=== PATIENT | female | born 1960 | race Caucasian/White ===

== ENCOUNTER 2016-11-03 05:14 | Inpatient (IN) ==
[2016-10-25 10:09] LABS: Apearance,Urine CLEAR (Clear); Bilirubin,Urine Negative (Negative); Blood, Urine Negative (Negative); Glucose,Urine (UA) Negative (Negative); Ketones,Urine Negative (Negative); Nitrite,Urine Negative (Negative); Protein,Urine Negative; RBC,Urine <1 /HPF (0-4); Squamous Epithelial Cell,Urine Occasional /HPF (0-10); Urine Color Straw (Yellow); Urine Specific Gravity 1.009 (1.001-1.035); Urine Urobilinogen < 2.0 EU/DL (0.2-1.0); WBC,Urine 1 /HPF (0-6)
[2016-10-25 10:16] LABS: PT Patient Result 10.3 SECS; Partial Thromboplastin Time 25.8 SECS (0-40)
[2016-10-25 10:24] LABS: Basophils % 0.6 % (0.0-0.8); Eosinophils # 0.1 10*3/uL (0.0-0.87); Eosinophils % 2.3 % (0.00-10.9); Hematocrit 34.3 VOL% (35.7-47.0); Immature Granulocytes % 0.4 %; Immature Granulocytes Absolute 0.02 #; Lymphocytes # 1.3 10*3/uL (1.4-4.0); Lymphocytes % 26.1 % (21.3-54.2); Mean Corpuscular HGB Conc 32.1 GM/DL (32-36); Mean Corpuscular Hemoglobin 28 PG (27-34); Mean Corpuscular Volume 87.7 FL (87-102); Mean Platelet Volume 10.6 FL (9.6-12.0); Monocytes # 0.4 10*3/uL (0.11-0.8); Monocytes % 8.6 % (1.7-12.7); Neutrophils # 3.2 10*3/uL (1.4-7.4); Platelet Count 239 T/CUMM (130-400); Red Blood Count 3.91 MC/CUMM (3.8-5.5); Red Cell Distribution Width 12.6 % (9.3-17.3); White Blood Count 5.1 T/CUMM (4-12)
[2016-10-25 10:35] LABS: Bilirubin,Total 0.5 MG/DL (0.2-1.0); Calcium 9.1 MG/DL (8.5-10.1); Osmolality,Calculated 286.8 MOS/KG (273-304); Potassium 4.4 MMOL/L (3.5-5.1); Total Protein 6.6 G/DL (6.4-8.3)
--- NOTE | 2016-10-25 11:58 | XRay Report ---
XR chest 2V Indication: Preop pulmonary evaluation. Chest 2 views: The heart size and mediastinal contour are normal. The lungs and pleural spaces are clear. Bones are unremarkable. Impression: Negative chest. PROCEDURE INTERPRETED AT [facility] [place] DEPARTMENT OF RADIOLOGY Final Report Signed by: Faraz Phillips M.D.
--- NOTE | 2016-10-25 13:18 | EKG Report ---
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
[~2016-11-03 05:14] MED LIST: FAMOTIDINE 20 MG TABLET PO ONE; LORazepam 1 MG TABLET PO ONE
[2016-11-03] MEDS ORDERED: VANCOMYCIN INJ 1,000 MG in SODIUM CHLORIDE 0.9% 250 ML IV ONE (06:00)
--- NOTE | 2016-11-03 06:48 | History and Physical Update ---
History and Physical Update - History and Physical H&P was reviewed, the patient examined and there: are no changes in the patients condition since last H&P was completed. (except left hip is more symptomatic)
[2016-11-03] MEDS ORDERED: ceFAZolin 1,000 MG VIAL ONE (07:23)
[2016-11-03] MEDS ORDERED: VANCOMYCIN 1,000 MG VIAL ONE (07:23)
[2016-11-03] MEDS ORDERED: SODIUM CHLORIDE 0.9% 100 ML IV ONE (07:24)
[2016-11-03] MEDS ORDERED: LORazepam 1 MG TABLET ONE (07:24)
[2016-11-03] MEDS ORDERED: FAMOTIDINE 20 MG TABLET ONE (07:24)
[2016-11-03] MEDS ORDERED: LACTATED RINGERS 1,000 ML IV SCH (08:00)
[2016-11-03] MEDS ORDERED: MORPHINE 10 MG/10 ML VIAL ONE (09:12)
[2016-11-03] MEDS ORDERED: TRANEXAMIC ACID 1,000 MG/10 ML VIAL IV ONE (09:14)
[2016-11-03] MEDS ORDERED: ONDANSETRON 4 MG/2 ML VIAL ONE (09:27)
[2016-11-03] MEDS ORDERED: PROPOFOL 200 MG/20 ML VIAL IV ONE (09:27)
[2016-11-03] MEDS ORDERED: BACITRACIN OINT 0.9 GM PACK TOP ONE (10:38)
[2016-11-03 11:02] LABS: Apearance,Urine CLEAR (Clear); Bilirubin,Urine Negative (Negative); Blood, Urine Negative (Negative); Glucose,Urine (UA) Negative (Negative); Ketones,Urine Negative (Negative); Nitrite,Urine Negative (Negative); Protein,Urine Negative; Urine Color Colorless (Yellow); Urine Specific Gravity 1.003 (1.001-1.035); Urine Urobilinogen < 2.0 EU/DL (0.2-1.0)
[2016-11-03] MEDS ORDERED: diphenhydrAMINE CAP 25 MG CAPSULE PO PRN (11:06)
[2016-11-03] MEDS ORDERED: ONDANSETRON 4 MG/2 ML VIAL IV PRN (11:06)
[2016-11-03] MEDS ORDERED: MORPHINE 2 MG/1 ML SYRINGE IV PRN ×2 (11:06)
[2016-11-03] MEDS ORDERED: oxyCODONE IR 5 MG TABLET PO PRN ×2 (11:06)
--- NOTE | 2016-11-03 11:22 | Operative Note ---
Date of procedure: 11/03/16 Procedure: DIAGNOSIS: Bilateral hip primary osteoarthritis PROCEDURE: Right total hip arthroplasty (CPT#26130) SURGEON: Cash ANESTHESIA: Spinal PROCEDURE and FINDINGS: After adequate anesthesia was induced, the patient was placed in lateral decubitus position. Left lower extremities prepped and draped in usual sterile fashion. Posteriolateral approach to the hip was made. Skin, subcutaneous tissue and deep fascia was incised longitudinally. Gluteus natasha muscle belly was split in line with its fibers. Piriformis, external rotators and capsule were taken down as a single layer as an inverted L shaped capsulotomy. Hip was dislocated. Templated femoral neck cut was made. Acetabulum was prepared by sequentially reaming to 53 mm. A 54 mm Continuum acetabular shell was press-fit with excellent stability. 1 6.5 millimeter screw was placed with an excellent bite. 32 mm elevated Longevity liner was placed with a dome hole plug. Femur was prepared sequentially with the box osteotome, canal finder and sequential broaches to 15. Components were trialed. A size 15 Versys Legacy stem was cemented in place with Palacos cement with modern cementing techniques. A distal centralizer and cement restrictor were utilized.. A 32+0 mm head was placed. The component was stable posteriorly and anteriorly. Capsule and external rotators were repaired to the greater trochanter with #5 Tycron. Deep fascia was closed with 0 Vicryl xarcym-mm-giyvv suture. Subcutaneous tissue was closed deep with a 2-0 Vicryl runner and superficially with 3-0 interrupted buried sutures. Skin was closed with aruna. Bacitracin and a sterile occlusive dressing was applied. Surgeon / Physician: Giovanni Castrejon Jr. Results - Labs CBC & BMP: 10/25/16 09:49 10/25/16 09:49 Discharge Plan - Discharge Medications No Action HYDROcodone/ACETAMIN 5-325 [[place] 5-325] 1 tablet PO BID PRN PRN Reason: Pain Diclofenac Sodium Tab [Voltaren] 75 mg PO DAILY Cholecalciferol [Vitamin D3] 500 unit PO DAILY Cyanocobalamin Tab [Vitamin B12 Tab] 500 mcg PO DAILY - Follow Up or Referral - Forms/Instructions
[2016-11-03] MEDS: LACTATED RINGERS 1,000 ML IV SCH ×2 (12:10→22:18)
--- NOTE | 2016-11-03 12:33 | XRay Report ---
XR hip 1V RT Indication: Joint replacement Comparison: None Technique: Single frontal view of the right hip Findings: Status post total right hip arthroplasty. No evidence of immediate hardware failure. Subcutaneous emphysema noted which is likely postoperative. Superficial skin aruna noted. IMPRESSION: As above. PROCEDURE INTERPRETED AT [facility] [place] DEPARTMENT OF RADIOLOGY Final Report Signed by: Dr Aydin Hines
[2016-11-03] MEDS ORDERED: MIDAZOLAM 2 MG/2 ML VIAL ONE (13:13)
[2016-11-03] MEDS ORDERED: KETAMINE 500 MG/10 ML VIAL ONE (13:13)
[2016-11-03] MEDS ORDERED: ACETAMINOPHEN 1,000 MG/100 ML VIAL IV ONE (13:14)
[2016-11-03] MEDS: KETOROLAC 30 MG/1 ML VIAL IV SCH ×2 (14:18→20:32)
[2016-11-03] MEDS ORDERED: LACTATED RINGERS 1,000 ML IV ONE (16:28)
--- NOTE | 2016-11-03 17:23 | Orthopedic Progress Note ---
Orthopedics - Subjective Interval history: Comfortable. She was able to stand today with physical therapy. She is mildly hypotensive. Dressing clean, dry and intact. Right lower extremities neurovascularly intact. Plan: Bolus with 1 L LR. Otherwise, continue with orders. Exam - Constitutional Vitals: Period Temp Pulse Resp BP Sys/Gomez Pulse Ox Last 24 Hr 97.3 F-99.0 F 47-71 16-20 94-148/42-74 98-100 Results - Labs CBC & BMP: 10/25/16 09:49 10/25/16 09:49
[2016-11-03] MEDS: ACETAMINOPHEN 500 MG TABLET PO SCH ×2 (18:30→22:17)
[2016-11-03] MEDS: DOCUSATE SODIUM 100 MG CAPSULE PO SCH (20:32)
[2016-11-04] MEDS: KETOROLAC 30 MG/1 ML VIAL IV SCH ×2 (01:34→09:04)
[2016-11-04] MEDS: ACETAMINOPHEN 500 MG TABLET PO SCH ×2 (03:25→09:05)
[2016-11-04] MEDS: FONDAPARINUX 2.5 MG/0.5 ML SYRINGE SUBCUT SCH (05:32)
[2016-11-04 06:13] LABS: Basophils % 0.2 % (0.0-0.8); Eosinophils # 0.1 10*3/uL (0.0-0.87); Eosinophils % 1.8 % (0.00-10.9); Hematocrit 25.4 VOL% (35.7-47.0); Hemoglobin 7.9 GM/DL (12.0-16.0); Immature Granulocytes % 0.4 %; Immature Granulocytes Absolute 0.02 #; Lymphocytes # 0.8 10*3/uL (1.4-4.0); Lymphocytes % 15.3 % (21.3-54.2); Mean Corpuscular HGB Conc 31.1 GM/DL (32-36); Mean Corpuscular Hemoglobin 28 PG (27-34); Mean Corpuscular Volume 89.1 FL (87-102); Mean Platelet Volume 10.8 FL (9.6-12.0); Monocytes # 0.6 10*3/uL (0.11-0.8); Monocytes % 12.5 % (1.7-12.7); Neutrophils # 3.6 10*3/uL (1.4-7.4); Neutrophils % 69.8 % (38.7-73.9); Platelet Count 164 T/CUMM (130-400); Red Blood Count 2.85 MC/CUMM (3.8-5.5); Red Cell Distribution Width 12.4 % (9.3-17.3); White Blood Count 5.1 T/CUMM (4-12)
[2016-11-04] MEDS ORDERED: SODIUM CHLORIDE 0.9% 250 ML IV PRN (06:17)
--- NOTE | 2016-11-04 06:28 | Orthopedic Progress Note ---
Orthopedics - Subjective Interval history: comfortable bolus helped temporarily, hypotensive this am nv ok dressing dry transfuse for acute blood loss anemia. mobilize bed to chair Exam - Constitutional Vitals: Period Temp Pulse Resp BP Sys/Gomez Pulse Ox Last 24 Hr 97.1 F-99.0 F 47-71 16-20 86-148/42-74 98-100 Results - Labs CBC & BMP: 11/04/16 05:38 10/25/16 09:49
[2016-11-04 06:47] LABS: Potassium 4.3 MMOL/L (3.5-5.1)
--- NOTE | 2016-11-04 08:56 | Anesthesia ---
Anesthesia Post OP - Post Ansesthetic Evaluation Patient seen in post op: Yes Resp: within normal limits CV: within normal limits Mental: within normal limits Temp: within normal limits Qiep-Kp-Asavfhntt: within normal limits Nausea and Vomiting: within normal limits Pain: within normal limits
[2016-11-04] MEDS: CYANOCOBALAMIN 500 MCG TABLET PO SCH (09:04)
[2016-11-04] MEDS: CHOLECALCIFEROL 1,000 UNIT TABLET PO SCH (09:04)
[2016-11-04] MEDS: DOCUSATE SODIUM 100 MG CAPSULE PO SCH ×2 (09:05→20:20)
--- NOTE | 2016-11-04 11:23 | Pathology Report from [facility] ---
ACCESSION # : [id number] PATIENT NAME : Michelle Douglas ORDERING DR : ERIN GREWAL MD CLINICAL HX: Right hip osteoarthritis POST-OP DX: Same SPECIMEN INFO: Right hip bone and tissue GROSS DESCRIPTION: The specimen is received in formalin labeled with the patient 's name and consists of a 4.3 x 5.2 x 5.2 cm femoral head. The articular surface is pink-metzger, roughened and degenerative with marked peripheral osteophyte formation noted. Cut surface is smooth, red-metzger with marked softening noted. Also in the container are multiple fragments of bone shavings collectively measuring 10.2 x 5.4 cm. Linux Support Engineer tissue submitted in one cassette following decalcification. DIAGNOSIS FOR MICHELLE DOUGLAS: RIGHT HIP BONE AND TISSUE, REPLACEMENT: Osteoarthritis. SERVICE DATE: 11/03/2016 REPORT DATE: 11/04/2016 PATHOLOGIST: Sammy Carrion M.D. MTDDella
[2016-11-04 17:48] LABS: Hematocrit 33.7 VOL% (35.7-47.0)
[2016-11-05 05:22] LABS: Basophils % 0.3 % (0.0-0.8); Eosinophils # 0.1 10*3/uL (0.0-0.87); Eosinophils % 0.7 % (0.00-10.9); Hemoglobin 10.4 GM/DL (12.0-16.0); Immature Granulocytes % 0.4 %; Immature Granulocytes Absolute 0.03 #; Lymphocytes # 0.9 10*3/uL (1.4-4.0); Lymphocytes % 12.4 % (21.3-54.2); Mean Corpuscular HGB Conc 32.5 GM/DL (32-36); Mean Corpuscular Hemoglobin 27 PG (27-34); Mean Corpuscular Volume 84.4 FL (87-102); Monocytes # 0.9 10*3/uL (0.11-0.8); Neutrophils # 5.6 10*3/uL (1.4-7.4); Neutrophils % 74.2 % (38.7-73.9); Platelet Count 173 T/CUMM (130-400); Red Blood Count 3.79 MC/CUMM (3.8-5.5); Red Cell Distribution Width 13.3 % (9.3-17.3); White Blood Count 7.6 T/CUMM (4-12)
[2016-11-05] MEDS: FONDAPARINUX 2.5 MG/0.5 ML SYRINGE SUBCUT SCH (05:53)
[2016-11-05] MEDS: CHOLECALCIFEROL 1,000 UNIT TABLET PO SCH (09:20)
[2016-11-05] MEDS: DOCUSATE SODIUM 100 MG CAPSULE PO SCH ×2 (09:20→20:20)
[2016-11-05] MEDS: CYANOCOBALAMIN 500 MCG TABLET PO SCH (09:20)
[2016-11-05] MEDS: MAGNESIUM HYDROXIDE SUSP 30 ML UDCUP PO PRN ×2 (09:24→16:19)
--- NOTE | 2016-11-05 09:31 | Orthopedic Progress Note ---
Orthopedics - Subjective Interval history: comfortable nv ok. hgb improved. mobilize with therapy. home Tuesday or Tuesday. Exam - Constitutional Vitals: Period Temp Pulse Resp BP Sys/Gomez Pulse Ox Last 24 Hr 97.5 F-100.2 F 70-83 16-18 115-155/63-80 93-100 Results - Labs CBC & BMP: 11/05/16 03:55 11/04/16 05:38 Specialty Discharge - Follow Up or Referrals Follow up with: Giovanni Castrejon Jr., MD [Physician] - 12/03/16 12:15 pm
--- NOTE | 2016-11-05 09:33 | Discharge Summary ---
<Giovanni Castrejon Jr. - Last Filed: 11/05/16 09:31> Hospital Course - Hospital Course Hospital Course: Mrs. Reis was admitted after undergoing an uncomplicated right total hip arthroplasty. She received perioperative DVT and antimicrobial prophylaxis. She received physical therapy. She was discharged home in stable condition with home health therapy. She is routine total hip discharge instructions. Specialty Discharge - Follow Up or Referrals Follow up with: Giovanni Castrejon Jr., MD [Physician] - 12/03/16 12:15 pm Discharge Plan - Discharge Data Disposition: Home Health Service Condition at Discharge: Stable Discharge Diet: advance to your usual diet Hygiene: may shower Weight Bearing at Discharge: weight bear as tolerated Driving: not until seen by doctor - Discharge Medications No Action HYDROcodone/ACETAMIN 5-325 [[place] 5-325] 1 tablet PO BID PRN PRN Reason: Pain Diclofenac Sodium Tab [Voltaren] 75 mg PO DAILY Cholecalciferol [Vitamin D3] 500 unit PO DAILY Cyanocobalamin Tab [Vitamin B12 Tab] 500 mcg PO DAILY - Follow Up or Referral Follow Up: Giovanni Castrejon Jr., MD [Physician] - 12/03/16 12:15 pm - Forms/Instructions Instructions: Total Hip Replacement (DC) Additional Discharge Instructions: Posterior hip precautions for 3 months. Daily dry dressing changes. Arrange for walker and bedside commode for home use. Wear DERRICK hose for 1 month. Follow-up appointment in 4 weeks. Discontinue aruna and Steri-Strip wound on November 15, 2016. Prescription for [place] 7.5 with 30 tablets was written. Take aspirin 325 mg daily by mouth for 21 days. Exam - Constitutional Vitals: Period Temp Pulse Resp BP Sys/Gomez Pulse Ox Last 24 Hr 97.2 F-98.5 F 72-90 17-20 119-148/69-80 95-96 Discharge Results Labs on day of discharge: Labs from last 24 hours 11/06/16 02:50 WBC 8.1 RBC 4.08 Hgb 11.1 L Hct 35.1 L MCV 86.0 L MCH 27 MCHC 31.6 L RDW 13.4 Plt Count 212 D MPV 10.6 Neut % (Auto) 73.4 Lymph % (Auto) 13.2 L [place] % (Auto) 10.9 Eos % (Auto) 1.6 Baso % (Auto) 0.5 Neut # (Auto) 6.0 Lymph # (Auto) 1.1 L [place] # (Auto) 0.9 H Eos # (Auto) 0.1 Baso # (Auto) 0.0 Immature Gran % 0.4 Nucleated RBC % 0.0 Immature Gran # 0.03 Nucleated RBCs # 0.00 DS: Provider Date of admission: 11/03/16 05:14 Primary care physician: ANTONY Cardona Attending physician on admission: Giovanni Castrejon Jr., Consults: 11/03/16 11:06 Consult to Case Mgmt/Social Srvs [CONS] Routine Reason for Case Mgmt/Social Srvs: Rehab Home Health Equipment Consult Comment: Bedside Commode,Del room 320, D/C today home, Pt 5ft 2in 154lbs Consult to Occupational Therapy [CONS] Routine Reason for Occupational Therapy: Evaluate and Treat Consult Comment: ADL's Consult to Physical Therapy [CONS] Routine Reason for Physical Therapy: Evaluate and Treat Gait Training Start Therapy: Today Consult Comment: wbat, posterior hip precautions 11/03/16 13:46 Consult to Pharmacy [CONS] Routine Reason for Pharmacy Consult: Adjust Meds Renal Funct 11/03/16 14:25 Consult to Pastoral Services [CONS] Routine Comment: Pastoral Screen: Request Eye Clinic Manager Visit Pastoral Screen Source of Request: Patient Discharging clinician: Giovanni Castrejon Jr., Expected date of discharge: 11/05/16 <Anmol Fernandes - Last Filed: 11/06/16 08:37> Diagnosis - Discharge Diagnosis (1) H/O total hip arthroplasty Status: Acute (2) Urgency of urination Status: Acute Exam - Constitutional General appearance: normal weight - Head Head exam: Present: normal inspection - Eye Eye exam: Present: EOMI Pupils: Present: ISMAEL - ENT ENT exam: Present: normal exam - Cardiovascular Cardiovascular exam: Present: regular rate and rhythm - GI/Abdominal GI/Abdominal exam: Absent: distended, firm - Extremities Exam Extremities exam: Present: normal inspection - Expanded Right Lower Hip exam: Present: normal inspection (Dressing clean, dry, intact.) Foot/Toe exam: Present: normal inspection, full ROM Neuro vascular tendon exam: Absent: motor deficit, pulse deficit, sensory deficit - Neurological Exam Neurological exam: Present: alert, oriented X3 - Psychiatric Psychiatric exam: Present: normal affect, normal mood - Skin Skin exam: Present: normal color DS: Provider Expected date of discharge: 11/06/16
[2016-11-06 03:16] LABS: Basophils % 0.5 % (0.0-0.8); Eosinophils # 0.1 10*3/uL (0.0-0.87); Eosinophils % 1.6 % (0.00-10.9); Hematocrit 35.1 VOL% (35.7-47.0); Hemoglobin 11.1 GM/DL (12.0-16.0); Immature Granulocytes % 0.4 %; Immature Granulocytes Absolute 0.03 #; Lymphocytes # 1.1 10*3/uL (1.4-4.0); Lymphocytes % 13.2 % (21.3-54.2); Mean Corpuscular HGB Conc 31.6 GM/DL (32-36); Mean Corpuscular Hemoglobin 27 PG (27-34); Mean Platelet Volume 10.6 FL (9.6-12.0); Monocytes # 0.9 10*3/uL (0.11-0.8); Monocytes % 10.9 % (1.7-12.7); Neutrophils % 73.4 % (38.7-73.9); Platelet Count 212 T/CUMM (130-400); Red Blood Count 4.08 MC/CUMM (3.8-5.5); Red Cell Distribution Width 13.4 % (9.3-17.3); White Blood Count 8.1 T/CUMM (4-12)
[2016-11-06] MEDS: FONDAPARINUX 2.5 MG/0.5 ML SYRINGE SUBCUT SCH (05:57)
[2016-11-06 07:55] VITALS: BP 121/70
--- NOTE | 2016-11-06 08:32 | Orthopedic Progress Note ---
Assessment and Plan (1) H/O total hip arthroplasty Status: Acute Assessment and plan: Continued care: PT, DVT prophylaxis, pain control Posterior hip precautions were discussed Continue weightbearing as tolerated right lower extremity Discharge planning for today to home with home health Follow with Dr. Castrejon in office Current Visit: Yes (2) Urgency of urination Status: Acute Assessment and plan: Her urinalysis from 11/03/16 was unremarkable for any evidence of signs of infection Discussed that her urinary urgency may be due to irritation from the Rodriges catheter. Recommend continued observation at this time and protective/ absorbent pads for her undergarments. Discussed that if this persists then she may need evaluation by a urologist or to discuss this with her PCP. Current Visit: Yes Orthopedics - Subjective Interval history: Patient seen and examined. Sitting up in chair. in room. States that she wants to go home today and is feeling well without complaints. Stated that she is having urinary urgency since the Rodriges catheter was removed. Denies any history of incontinence or urgency in the past. Exam - Constitutional Vitals: Period Temp Pulse Resp BP Sys/Gomez Pulse Ox Last 24 Hr 97.2 F-98.5 F 72-90 17-20 119-148/69-80 95-96 - Extremities Exam Extremities exam: Present: normal inspection (Right lower extremity: Dressing clean, dry, intact. Compartments soft. Minimal tenderness to palpation. Full active range of motion toes and ankle. Cap refill brisk. Sensation intact. Calf soft.) Results - Labs CBC & BMP: 11/06/16 02:50 11/04/16 05:38 Lab Results: I have reviewed the past 24 hour labs Specialty Discharge - Follow Up or Referrals Follow up with: Giovanni Castrejon Jr., MD [Physician] - 12/03/16 12:15 pm
[2016-11-06] MEDS: DOCUSATE SODIUM 100 MG CAPSULE PO SCH (09:04)
[2016-11-06] MEDS: CHOLECALCIFEROL 1,000 UNIT TABLET PO SCH (09:04)
[2016-11-06] MEDS: CYANOCOBALAMIN 500 MCG TABLET PO SCH (09:06)
== END 2016-11-06 09:55 | disposition home health service (06) | DRG 470 ==
LOC: N.SDSINP 05:14 → N.3E 11:55
PROVIDERS: ADMIT Orthopaedic Surgery; ATTEND Orthopaedic Surgery

== ENCOUNTER 2017-02-15 05:17 | Inpatient (IN) ==
[2017-02-07 10:19] LABS: Basophils % 0.8 % (0.0-0.8); Eosinophils # 0.1 10*3/uL (0.0-0.87); Eosinophils % 2.6 % (0.00-10.9); Hemoglobin 11.6 GM/DL (12.0-16.0); Immature Granulocytes % 0.2 %; Immature Granulocytes Absolute 0.01 #; Lymphocytes # 1.2 10*3/uL (1.4-4.0); Lymphocytes % 24.8 % (21.3-54.2); Mean Corpuscular HGB Conc 33.1 GM/DL (32-36); Mean Corpuscular Hemoglobin 28 PG (27-34); Mean Platelet Volume 10.3 FL (9.6-12.0); Monocytes # 0.4 10*3/uL (0.11-0.8); Monocytes % 8.3 % (1.7-12.7); Neutrophils # 3.1 10*3/uL (1.4-7.4); Neutrophils % 63.3 % (38.7-73.9); Platelet Count 208 T/CUMM (130-400); Red Blood Count 4.12 MC/CUMM (3.8-5.5); White Blood Count 4.9 T/CUMM (4-12)
[2017-02-07 10:28] LABS: Partial Thromboplastin Time 26.3 SECS (0-40)
--- NOTE | 2017-02-07 10:42 | XRay Report ---
Exam: XR chest 2V Indication: Preop Comparison study: Prior chest radiograph 10/25/2016 Findings: The heart, mediastinum and bony structures are stable from prior. There is no focal consolidation, pneumothorax or pleural effusion identified. Impression: No acute cardiopulmonary process. No significant change from prior. PROCEDURE INTERPRETED AT [facility] DEPARTMENT OF RADIOLOGY Final Report Signed by: Raul Piña
[2017-02-07 10:49] LABS: Apearance,Urine CLEAR (Clear); Bacteria,Urine Occasional /HPF (Few); Bilirubin,Urine Negative (Negative); Blood, Urine Negative (Negative); Glucose,Urine (UA) Negative (Negative); Ketones,Urine Negative (Negative); Nitrite,Urine Negative (Negative); Protein,Urine Negative; Squamous Epithelial Cell,Urine Occasional /HPF (0-10); Urine Color Straw (Yellow); Urine Specific Gravity 1.004 (1.001-1.035); Urine Urobilinogen < 2.0 EU/DL (0.2-1.0)
[2017-02-07 11:00] LABS: Bilirubin,Total 0.7 MG/DL (0.2-1.0); Calcium 9.2 MG/DL (8.5-10.1); Osmolality,Calculated 281.3 MOS/KG (273-304); Potassium 4.5 MMOL/L (3.5-5.1); Total Protein 6.8 G/DL (6.4-8.3)
--- NOTE | 2017-02-07 13:51 | EKG Report ---
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
[2017-02-15] MEDS ORDERED: VANCOMYCIN INJ 1,000 MG in SODIUM CHLORIDE 0.9% 250 ML IV ONE (06:00)
[2017-02-15] MEDS ORDERED: TRANEXAMIC ACID 1,000 MG/10 ML VIAL IV ONE (06:16)
[2017-02-15] MEDS ORDERED: SODIUM CHLORIDE 0.9% 100 ML IV ONE ×2 (06:20→08:53)
[2017-02-15] MEDS ORDERED: VANCOMYCIN 1,000 MG VIAL ONE (06:20)
[2017-02-15] MEDS ORDERED: ceFAZolin 1,000 MG VIAL ONE (06:20)
[2017-02-15] MEDS ORDERED: BACITRACIN OINT 0.9 GM PACK TOP ONE (06:28)
--- NOTE | 2017-02-15 06:57 | History and Physical Update ---
History and Physical Update - History and Physical H&P was reviewed, the patient examined and there: are no changes in the patients condition since last H&P was completed. - Physical Exam Mental Status: alert and oriented Heart: regular rate and rhythm Lung: clear to auscultation
[2017-02-15] MEDS ORDERED: LACTATED RINGERS 1,000 ML IV SCH (07:00)
[2017-02-15] MEDS ORDERED: diphenhydrAMINE CAP 25 MG CAPSULE PO PRN (08:36)
[2017-02-15] MEDS ORDERED: MORPHINE 2 MG/1 ML SYRINGE IV PRN ×2 (08:36)
[2017-02-15] MEDS ORDERED: MAGNESIUM HYDROXIDE SUSP 30 ML UDCUP PO PRN (08:36)
[2017-02-15] MEDS ORDERED: ZALEPLON 5 MG CAPSULE PO PRN (08:36)
[2017-02-15] MEDS ORDERED: ONDANSETRON 4 MG/2 ML VIAL IV PRN (08:36)
[2017-02-15] MEDS ORDERED: oxyCODONE IR 5 MG TABLET PO PRN ×2 (08:36)
--- NOTE | 2017-02-15 08:40 | Operative Note ---
Date of procedure: 02/15/17 Procedure: DIAGNOSIS: Left hip primary osteoarthritis PROCEDURE: Left total hip arthroplasty (CPT#89161) SURGEON: Cash ASST: Tej Zapata ANESTHESIA: Spinal PROCEDURE and FINDINGS: After adequate anesthesia was induced, the patient was placed in lateral decubitus position. Left lower extremities prepped and draped in usual sterile fashion. Posteriolateral approach to the hip was made. Skin, subcutaneous tissue and deep fascia was incised longitudinally. Gluteus natasha muscle belly was split in line with its fibers. Piriformis, external rotators and capsule were taken down as a single layer as an inverted L shaped capsulotomy. Hip was dislocated. Templated femoral neck cut was made. Acetabulum was prepared by sequentially reaming to 53 mm. A 54 mm Continuum acetabular shell was press-fit with excellent stability. 1 6.5 millimeter screw was placed with an excellent bite. 32 mm elevated rim longevity liner was placed with a dome hole plug. Femur was prepared sequentially with the box osteotome, canal finder and sequential broaches to 15. Components were trialed. A size 15 Versys Advocate stem was cemented in place using Palacos cement and modern cementing techniques. A distal centralizer and cement restrictor were used. A 32+0 mm head was placed. The component was stable posteriorly and anteriorly. Capsule was repaired with #5 Tycron suture to the greater trochanter. Deep fascia was closed with 0 Vicryl flmbid-zs-innpj suture. Subcutaneous tissue was closed deep with a 2-0 Vicryl runner and superficially with 3-0 interrupted buried sutures. Skin was closed with aruna. Bacitracin and a sterile occlusive dressing was applied. Surgeon / Physician: Giovanni Castrejon Jr. Results - Labs CBC & BMP: 02/07/17 10:12 02/07/17 10:12 Discharge Plan - Discharge Medications No Action HYDROcodone/ACETAMIN 5-325 [[place] 5-325] 1 tablet PO BID PRN PRN Reason: Pain Diclofenac Sodium Tab [Voltaren] 75 mg PO DAILY Cholecalciferol [Vitamin D3] 500 unit PO DAILY Cyanocobalamin Tab [Vitamin B12 Tab] 500 mcg PO DAILY - Follow Up or Referral - Forms/Instructions
[2017-02-15] MEDS ORDERED: MIDAZOLAM 2 MG/2 ML VIAL ONE (08:53)
[2017-02-15] MEDS ORDERED: fentaNYL 100 MCG/2 ML VIAL ONE (08:53)
[2017-02-15] MEDS ORDERED: ACETAMINOPHEN 1,000 MG/100 ML VIAL IV ONE (08:53)
[2017-02-15 08:57] LABS: Apearance,Urine CLEAR (Clear); Bilirubin,Urine Negative (Negative); Blood, Urine Negative (Negative); Glucose,Urine (UA) Negative (Negative); Hyaline Casts,Urine 1 /LPF (0-3); Ketones,Urine Negative (Negative); Mucus,Urine Occasional /LPF (Occasional); Nitrite,Urine Negative (Negative); Protein,Urine Negative; RBC,Urine 1 /HPF (0-4); Squamous Epithelial Cell,Urine Occasional /HPF (0-10); Urine Color Yellow (Yellow); Urine Specific Gravity 1.014 (1.001-1.035); Urine Urobilinogen < 2.0 EU/DL (0.2-1.0); WBC,Urine <1 /HPF (0-6)
[2017-02-15] MEDS ORDERED: CHOLECALCIFEROL 400 UNIT TABLET PO SCH (09:00)
--- NOTE | 2017-02-15 09:12 | XRay Report ---
History is status post left hip replacement Patient is status post total left hip replacement with overlying soft tissue aruna. There is resulting gross anatomic alignment on this single view. Left pelvic clips visualized Impression: Status post left hip replacement PROCEDURE INTERPRETED AT [facility] DEPARTMENT OF RADIOLOGY Final Report Signed by: Dr. Delmy Mcmanus
[2017-02-15] MEDS: KETOROLAC 30 MG/1 ML VIAL IV SCH ×3 (11:03→22:11)
[2017-02-15] MEDS: DOCUSATE SODIUM 100 MG CAPSULE PO SCH ×2 (11:03→20:13)
[2017-02-15] MEDS: CHOLECALCIFEROL 400 UNIT TABLET PO SCH (11:03)
[2017-02-15] MEDS: LACTATED RINGERS 1,000 ML IV SCH ×2 (11:03→20:13)
[2017-02-15] MEDS: CYANOCOBALAMIN 500 MCG TABLET PO SCH (11:03)
[2017-02-15] MEDS: ceFAZolin 2,000 MG in PREMIX 1 EACH IV SCH ×2 (13:33→20:14)
[2017-02-15] MEDS: ACETAMINOPHEN 500 MG TABLET PO SCH ×2 (13:34→18:10)
--- NOTE | 2017-02-15 15:44 | Orthopedic Progress Note ---
Orthopedics - Subjective Interval history: Comfortable. Sitting up in a chair. Left lower extremities neurovascularly intact. Plan: Mobilize per protocol. Exam - Constitutional Vitals: Period Temp Pulse Resp BP Sys/Gomez Pulse Ox Last 24 Hr 97.3 F-97.8 F 52-92 16-20 100-140/56-78 98-100 Results - Labs CBC & BMP: 02/07/17 10:12 02/07/17 10:12
[2017-02-16] MEDS: FONDAPARINUX 2.5 MG/0.5 ML SYRINGE SUBCUT SCH (02:07)
[2017-02-16 05:23] LABS: Basophils % 0.4 % (0.0-0.8); Eosinophils # 0.1 10*3/uL (0.0-0.87); Eosinophils % 1.8 % (0.00-10.9); Hematocrit 27.8 VOL% (35.7-47.0); Hemoglobin 9.2 GM/DL (12.0-16.0); Immature Granulocytes % 0.4 %; Immature Granulocytes Absolute 0.02 #; Lymphocytes # 0.8 10*3/uL (1.4-4.0); Lymphocytes % 13.5 % (21.3-54.2); Mean Corpuscular HGB Conc 33.1 GM/DL (32-36); Mean Corpuscular Hemoglobin 28 PG (27-34); Mean Corpuscular Volume 84.2 FL (87-102); Mean Platelet Volume 10.9 FL (9.6-12.0); Monocytes # 0.7 10*3/uL (0.11-0.8); Monocytes % 11.5 % (1.7-12.7); Neutrophils # 4.1 10*3/uL (1.4-7.4); Neutrophils % 72.4 % (38.7-73.9); Platelet Count 144 T/CUMM (130-400); Red Cell Distribution Width 13.3 % (9.3-17.3); White Blood Count 5.6 T/CUMM (4-12)
[2017-02-16] MEDS ORDERED: KETOROLAC 30 MG/1 ML VIAL ONE (05:38)
[2017-02-16 05:48] LABS: Calcium 7.9 MG/DL (8.5-10.1); Osmolality,Calculated 279.4 MOS/KG (273-304)
[2017-02-16] MEDS: ACETAMINOPHEN 500 MG TABLET PO SCH ×2 (05:52)
[2017-02-16] MEDS: KETOROLAC 30 MG/1 ML VIAL IV SCH (05:52)
[2017-02-16 06:06] LABS: Band Neutrophils 8 % (0-10); Eosinophils 2 % (0-10); Lymphocytes 13 % (20-55); Segmented Neutrophils 72 % (50-85); Total Cells Counted 100
[2017-02-16 06:07] LABS: Hypochromasia 1+; Microcytosis 1+; Ovalocytes Few; Platelet Estimate Adequate
[2017-02-16] MEDS: LACTATED RINGERS 1,000 ML IV SCH (07:42)
[2017-02-16] MEDS: DOCUSATE SODIUM 100 MG CAPSULE PO SCH ×2 (09:27→21:05)
[2017-02-16] MEDS: CHOLECALCIFEROL 400 UNIT TABLET PO SCH (09:27)
[2017-02-16] MEDS: CYANOCOBALAMIN 500 MCG TABLET PO SCH (09:27)
--- NOTE | 2017-02-16 12:18 | Pathology Report from [facility] ---
[facility] [place] ACCESSION # : [id number] PATIENT NAME : Michelle Gallardo ORDERING DR : ERIN GREWAL MD CLINICAL HX: LT hip osteoarthritis POST-OP DX: Same SPECIMEN INFO: LT hip bone & tissue GROSS DESCRIPTION: The specimen is received in formalin labeled with the patients name and consists of a focally degenerative femoral head measuring 5.0 x 4.8 x 5.2 cm with an area of subchondral eburnation seen measuring 3.3 x 2.5 cm. Cut surfaces are smooth with some softening appreciated. Received separately in the container are fragments of hemorrhagic bone and soft tissue measuring 15.0 x 3.5 cm in aggregate. Nib Finisher tissue submitted in one cassette following decalcification. DIAGNOSIS FOR MICHELLE GALLARDO: LEFT HIP BONE AND TISSUE: Gross and microscopic findings consistent with osteoarthritis. Normocellular bone marrow. COLLECTED DATE: 02/15/2017 [facility] REPORT DATE: 02/16/2017 ELECTRONICALLY SIGNED BY: Jey Judd III, M.D. 02/16/2017 - 10:05:21 [facility]
--- NOTE | 2017-02-16 16:21 | Orthopedic Progress Note ---
Orthopedics - Subjective Interval history: comfortable this am when seen nv ok. dressing dry. continue orders. Exam - Constitutional Vitals: Period Temp Pulse Resp BP Sys/Gomez Pulse Ox Last 24 Hr 97.0 F-98.4 F 65-72 16-19 95-115/53-60 95-98 Results - Labs CBC & BMP: 02/16/17 05:03 02/16/17 05:03
[2017-02-17] MEDS: FONDAPARINUX 2.5 MG/0.5 ML SYRINGE SUBCUT SCH (03:00)
[2017-02-17 03:19] LABS: Basophils % 0.4 % (0.0-0.8); Eosinophils # 0.1 10*3/uL (0.0-0.87); Eosinophils % 1.3 % (0.00-10.9); Hematocrit 27.2 VOL% (35.7-47.0); Immature Granulocytes % 0.6 %; Immature Granulocytes Absolute 0.04 #; Lymphocytes # 0.8 10*3/uL (1.4-4.0); Lymphocytes % 10.7 % (21.3-54.2); Mean Corpuscular HGB Conc 33.1 GM/DL (32-36); Mean Corpuscular Hemoglobin 28 PG (27-34); Mean Corpuscular Volume 84.2 FL (87-102); Monocytes # 0.7 10*3/uL (0.11-0.8); Monocytes % 9.4 % (1.7-12.7); Neutrophils # 5.5 10*3/uL (1.4-7.4); Neutrophils % 77.6 % (38.7-73.9); Platelet Count 145 T/CUMM (130-400); Red Blood Count 3.23 MC/CUMM (3.8-5.5); Red Cell Distribution Width 13.5 % (9.3-17.3); White Blood Count 7.1 T/CUMM (4-12)
[2017-02-17 07:41] VITALS: BP 123/68
[2017-02-17] MEDS: CHOLECALCIFEROL 400 UNIT TABLET PO SCH (08:32)
[2017-02-17] MEDS: CYANOCOBALAMIN 500 MCG TABLET PO SCH (08:32)
[2017-02-17] MEDS: DOCUSATE SODIUM 100 MG CAPSULE PO SCH (08:32)
--- NOTE | 2017-02-17 09:23 | Discharge Summary ---
Hospital Course - Hospital Course Hospital Course: Mrs. Gallardo was admitted after undergoing an uncomplicated left total hip replacement. She received perioperative DVT and antimicrobial prophylaxis. She received physical therapy. She was discharged home postoperative day #2 in stable condition. She is routine discharge instructions. She is to be discharged with home health. Her dressing is clean, dry and intact. Her left lower extremities neurovascularly unchanged. Specialty Discharge - Follow Up or Referrals Follow up with: Giovanni Castrejon Jr., MD [Physician] - Discharge Plan - Discharge Data Disposition: Home Health Service Condition at Discharge: Stable Discharge Diet: advance to your usual diet Hygiene: may shower Weight Bearing at Discharge: weight bear as tolerated Driving: not until seen by doctor - Discharge Medications Continue HYDROcodone/ACETAMIN 5-325 [[place] 5-325] 1 tablet PO BID PRN PRN Reason: Pain Diclofenac Sodium Tab [Voltaren] 75 mg PO DAILY Cholecalciferol [Vitamin D3] 500 unit PO DAILY Cyanocobalamin Tab [Vitamin B12 Tab] 500 mcg PO DAILY Pramipexole [Mirapex] 0.5 mg PO BEDTIME - Follow Up or Referral Follow Up: Giovanni Castrejon Jr., MD [Physician] - - Forms/Instructions Additional Discharge Instructions: Posterior hip precautions for 3 months. Daily dry dressing changes. Wear DERRICK hose for 1 month. Follow-up appointment in 4 weeks. Discontinue aruna and Steri-Strip wound on February 28, 2017. Prescription for [place] 7.5 with 30 tablets was written. Take aspirin 325 mg by mouth daily for 21 days.. Exam - Constitutional Vitals: Period Temp Pulse Resp BP Sys/Gomez Pulse Ox Last 24 Hr 97.6 F-99.2 F 63-90 14-20 110-123/58-68 94-100 Discharge Results Procedures and tests throughout hospitalization: Pending Orders 02/18/17 04:00 Comp Blood Count Auto Diff IN AM Labs on day of discharge: Labs from last 24 hours 02/17/17 02:59 WBC 7.1 RBC 3.23 L Hgb 9.0 L Hct 27.2 L MCV 84.2 L MCH 28 MCHC 33.1 RDW 13.5 Plt Count 145 MPV 11.0 Neut % (Auto) 77.6 H Lymph % (Auto) 10.7 L [place] % (Auto) 9.4 Eos % (Auto) 1.3 Baso % (Auto) 0.4 Neut # (Auto) 5.5 Lymph # (Auto) 0.8 L [place] # (Auto) 0.7 Eos # (Auto) 0.1 Baso # (Auto) 0.0 Immature Gran % 0.6 Nucleated RBC % 0.0 Immature Gran # 0.04 Nucleated RBCs # 0.00 DS: Provider Date of admission: 02/15/17 05:17 Primary care physician: ANTONY Cardona Attending physician on admission: Giovanni Castrejon Jr., Consults: 02/15/17 08:36 Consult to Case Mgmt/Social Srvs [CONS] Routine Reason for Case Mgmt/Social Srvs: Rehab Home Health Equipment Consult Comment: Bedside Commode, CPM, Walker Consult to Occupational Therapy [CONS] Routine Reason for Occupational Therapy: Evaluate and Treat Consult Comment: ADL's Consult to Physical Therapy [CONS] Routine Reason for Physical Therapy: Evaluate and Treat Gait Training Start Therapy: Today Consult Comment: wbat, hip precautions Discharging clinician: Giovanni Castrejon Jr., Expected date of discharge: 02/17/17
== END 2017-02-17 11:00 | disposition home health service (06) | DRG 470 ==
LOC: N.SDSINP 05:17 → N.3E 09:52
PROVIDERS: ADMIT Orthopaedic Surgery; ATTEND Orthopaedic Surgery